=== PATIENT | female | born 1945 | race Caucasian/White ===

== ENCOUNTER → 2022-05-04 | Outpatient (CLI) | payer MEDICARE, OTHER | LOC: LAB 16:09 | DX: M62.81 Muscle weakness (generalized) (principal); R53.83 Other fatigue; Z85.810 Personal history of malignant neoplasm of tongue ==

== ENCOUNTER → 2022-06-05 | Outpatient (CLI) | payer MEDICARE, OTHER ==
[2022-06-05 16:30] LABS: BASO # 0.06 K/mm3 (0.02-0.10); EOS # 0.29 K/mm3 (0.04-0.40); EOS % 1.7 % (1.0-5.0); HEMATOCRIT 33.3 % (37.0-47.0); HEMOGLOBIN 10.3 g/dL (12.5-16.0); LYMPH# 0.93 K/mm3 (1.50-4.00); MEAN CELL VOLUME 92 fl (78-100); MEAN CORPUSCULAR HEMOGLOBIN 29 pg (27-31); MEAN CORPUSCULAR HGB CONC 31 g/dL (33-37); MEAN PLATELET VOLUME 9.7 fl (7.4-10.4); MONO # 1.33 K/mm3 (0.20-0.80); NEU # 14.25 K/mm3 (1.40-6.50); PLATELET COUNT 453 K/mm3 (130-400); RED BLOOD COUNT 3.62 M/mm3 (4.10-5.30); RED CELL DISTRIBUTION WIDTH 13.4 % (11.5-14.5); WHITE BLOOD COUNT 17.1 K/mm3 (4.8-10.8)
[2022-06-05 16:35] LABS: ALBUMIN 3.6 g/dL (3.4-4.8)
[2022-06-05 16:36] LABS: CALCIUM 11.2 mg/dL (8.3-10.5)
[2022-06-05 16:37] LABS: TOTAL PROTEIN 6.9 g/dL (6.2-8.1)
[2022-06-05 16:39] LABS: TOTAL BILIRUBIN 0.7 mg/dL (0.2-1.2)
== END ==
LOC: LAB 16:09
PROVIDERS: Internal Medicine
DX: C02.2 Malignant neoplasm of ventral surface of tongue (principal)

== ENCOUNTER → 2022-06-22 | Outpatient (CLI) | payer MEDICARE, OTHER ==
[2022-06-22 13:31] LABS: HEMATOCRIT 35.1 % (37.0-47.0); HEMOGLOBIN 10.7 g/dL (12.5-16.0); MEAN CELL VOLUME 91 fl (78-100); MEAN CORPUSCULAR HEMOGLOBIN 28 pg (27-31); MEAN CORPUSCULAR HGB CONC 31 g/dL (33-37); PLATELET COUNT 450 K/mm3 (130-400); RED BLOOD COUNT 3.85 M/mm3 (4.10-5.30); RED CELL DISTRIBUTION WIDTH 13.8 % (11.5-14.5); WHITE BLOOD COUNT 16.4 K/mm3 (4.8-10.8)
[2022-06-22 13:39] LABS: ALBUMIN 3.6 g/dL (3.4-4.8); POTASSIUM 4.7 mmol/L (3.5-5.1)
[2022-06-22 13:40] LABS: CALCIUM 11.1 mg/dL (8.3-10.5)
[2022-06-22 13:41] LABS: TOTAL PROTEIN 7.6 g/dL (6.2-8.1)
[2022-06-22 13:43] LABS: TOTAL BILIRUBIN 0.7 mg/dL (0.2-1.2)
[2022-06-22 13:59] LABS: LYMPHOCYTE 5 % (20-51); MONOCYTE 2 % (3-10); NEUTROPHILS 89 % (42-75)
== END ==
LOC: LAB 13:19
PROVIDERS: Internal Medicine
DX: C02.2 Malignant neoplasm of ventral surface of tongue (principal)

== ENCOUNTER → 2022-07-24 | Outpatient (CLI) | payer MEDICARE, OTHER ==
[~2022-07-24] MED LIST: ANTIVERT12.5 M1 PEG; GLUCOPHAGE PEG; LEVOFLOXACIN500 M1 PEG; NORCO 325 MG-7.1 TA1 PO; PAROXETINE HYDR30 MG PEG; TRIAMCINOLONE A15 G3 TP
== END ==
LOC: RAD 09:20
DX: C02.2 Malignant neoplasm of ventral surface of tongue (principal); J34.89 Other specified disorders of nose and nasal sinuses; R29.6 Repeated falls
CPT/HCPCS: A9575